=== PATIENT | male | born 1985 | race African-American/Black ===

== ENCOUNTER 2020-03-19 15:56 | Outpatient (CLI) | payer OTHER ==
[2020-03-19 16:30] LABS: POTASSIUM 4.1 mmol/L (3.6-5.2)
== END 2020-03-19 19:26 | disposition home or self-care (01) ==
LOC: RAD 15:56
PROVIDERS: Nurse Practitioner Family
DX: R10.9 Unspecified abdominal pain (principal)
CPT/HCPCS: 36415; 80053; 82150; 83690; 86318